=== PATIENT | male | born 1950 | race Caucasian/White ===

== ENCOUNTER → 2017-04-10 | Outpatient (CLI) | payer MEDICARE, OTHER ==
[~2017-04-10] MED LIST: ASPIR 8181 MG PO; LISINOPRIL20 MG PO; NORVASC10 MG PO; SYNTHROID 50 M50 MCG PO
== END ==
LOC: US 15:45
DX: I73.9 Peripheral vascular disease, unspecified (principal); I70.202 Unspecified atherosclerosis of native arteries of extremities, left leg
CPT/HCPCS: 93922; 93926; 93971

== ENCOUNTER 2017-04-18 20:40 | Observation (INO) | payer MEDICARE ==
[~2017-04-18] VITALS: Ht 180.3 cm; Wt 70.8 kg
[2017-04-18 21:04] LABS: HEMOGLOBIN 13.4 gm/dl (14.0-17.5); RED BLOOD COUNT 4.03 M/UL (4.20-5.50); WHITE BLOOD COUNT 7.2 K/UL (4.5-11.0)
[2017-04-19] MEDS ORDERED: LISINOPRIL20 MG PO (09:13)
[2017-04-19] MEDS ORDERED: SYNTHROID 50 M50 MCG PO (09:14)
[2017-04-19 20:37] LABS: BUN/CREATININE RATIO 12 (0-10)
[2017-04-20 06:05] LABS: HEMOGLOBIN 13.7 gm/dl (14.0-17.5); RED BLOOD COUNT 4.19 M/UL (4.20-5.50); WHITE BLOOD COUNT 7.7 K/UL (4.5-11.0)
[2017-04-20 06:32] LABS: BUN/CREATININE RATIO 14 (0-10)
[2017-04-20] MEDS ORDERED: NORVASC10 MG PO (13:28)
[2017-04-20] MEDS ORDERED: ASPIR 8181 MG PO (13:29)
== END 2017-04-20 12:59 | disposition home or self-care (01) ==
LOC: ER1 20:40 → ZEROF 04-19 02:35 → M/S 04-19 19:30
PROVIDERS: Emergency Medicine; Internal Medicine; ADMIT Internal Medicine
DX: I16.0 Hypertensive urgency (principal); E03.9 Hypothyroidism, unspecified; R94.31 Abnormal electrocardiogram [ECG] [EKG]; R74.8 Abnormal levels of other serum enzymes; I10 Essential (primary) hypertension; Z87.891 Personal history of nicotine dependence; Z79.899 Other long term (current) drug therapy; Z98.890 Other specified postprocedural states
CPT/HCPCS: 36415; 70450; 71010; 80048; 80053; 80061; 82550; 82553; 82570; 83036; 83735; 83874; 84156; 84439; 84443; 84484; 85025; 85027; 93005; 96374; 96376; 99285; G0378; J0360